=== PATIENT | female | born 1985 | race Caucasian/White ===

== ENCOUNTER 2017-10-14 07:32 | Inpatient (IN) | payer OTHER ==
[2017-10-14 08:39] LABS: ROM Internal QC QC Line Present
[2017-10-14 10:57] LABS: Hematocrit 35 % (35-47); Hemoglobin 11.7 g/dl (12.0-16.0); Mean Corpuscular HGB Conc 33 g/dl (31-36); Mean Corpuscular Hemoglobin 29 pg (27-31); Mean Corpuscular Volume 88 fL (80-97); Mean Platelet Volume 9 um3 (7.4-10.4); Red Cell Distribution Width 16 % (10.5-15); White Blood Count 18.3 10^3/ul (3.5-10.8)
[2017-10-14] MEDS ORDERED: Oxytocin in LR* 20 UNITS/1,000 ML BAG IVPB ONE (11:08)
[2017-10-14] MEDS ORDERED: Nalbuphine* 20 MG/ML 1 ML VIAL ONE (11:29)
[2017-10-14] MEDS ORDERED: Promethazine INJ(RESTRICTED)* 25 MG/ML 1 ML VIAL ONE (11:29)
[2017-10-14] MEDS ORDERED: Promethazine INJ(RESTRICTED)* 25 MG/ML 1 ML VIAL IV ONE (11:30)
[2017-10-14] MEDS ORDERED: Nalbuphine* 20 MG/ML 1 ML VIAL IV ONE (11:30)
[2017-10-14] MEDS ORDERED: Dibucaine 1% 28.35 GM TUBE ONE (14:11)
[2017-10-14] MEDS ORDERED: Witch Hazel PAD* JAR TOPICAL PRN (15:32)
[2017-10-14] MEDS ORDERED: Dibucaine 1% 28.35 GM TUBE PR PRN (15:32)
[2017-10-14] MEDS ORDERED: Ibuprofen TAB* 600 MG PO PRN (15:32)
[2017-10-14] MEDS ORDERED: Acetaminophen TAB* 325 MG PO PRN (15:32)
[2017-10-14] MEDS ORDERED: Glycerin ADULT SUPP PR PRN (15:32)
[2017-10-14] MEDS ORDERED: Oxytocin in LR* 20 UNITS/1,000 ML BAG IVPB SCH (16:00)
[2017-10-14] MEDS: Simethicone TAB* 80 MG TAB.CHEW PO SCH ×2 (18:13→23:29)
[2017-10-14] MEDS: Docusate CAP* 100 MG PO SCH (21:32)
[2017-10-15 06:24] LABS: Hematocrit 31 % (35-47); Hemoglobin 10.3 g/dl (12.0-16.0); Mean Corpuscular HGB Conc 33 g/dl (31-36); Mean Corpuscular Hemoglobin 34 pg (27-31); Mean Corpuscular Volume 101 fL (80-97); Mean Platelet Volume 9 um3 (7.4-10.4); Red Blood Count 3.06 10^6/ul (4.0-5.4); Red Cell Distribution Width 16 % (10.5-15); White Blood Count 14.6 10^3/ul (3.5-10.8)
[2017-10-15] MEDS ORDERED: Ferrous Gluconate TAB* 324 MG TAB PO SCH (09:00)
[2017-10-15] MEDS: Docusate CAP* 100 MG PO SCH (09:20)
[2017-10-15 11:53] VITALS: BP 118/68
== END 2017-10-15 16:27 | disposition home or self-care (01) | DRG 560 ==
LOC: MCHOBOUT 07:32 → MCHOB 08:11
PROVIDERS: ADMIT Midwife; ATTEND Midwife
PROC: 10E0XZZ Delivery of Products of Conception, External Approach (ICD-10-PCS; principal; 2017-10-14)
DX: O48.0 Post-term pregnancy (principal); E66.9 Obesity, unspecified; O99.214 Obesity complicating childbirth; Z68.37 Body mass index [BMI] 37.0-37.9, adult; O70.0 First degree perineal laceration during delivery; O77.0 Labor and delivery complicated by meconium in amniotic fluid; O32.6XX0 Maternal care for compound presentation, not applicable or unspecified; Z3A.40 40 weeks gestation of pregnancy; Z37.0 Single live birth
CPT/HCPCS: 36415; 84112; 85025; 86850; 86900; 86901; A9270-GY; J2300; J2550